=== PATIENT | male | born 1950 | race Caucasian/White ===

== ENCOUNTER 2025-02-15 22:01 | Outpatient (REF) | payer MEDICARE, SELFPAY ==
[2025-02-15 15:24] LABS: ALT 34 U/L (16-63); AST 31 U/L (15-37); Albumin 4.3 g/dL (3.4-5.0); Alkaline Phosphatase 81 U/L (46-116); Anion Gap 9.2 mmol/L (3-11); BUN 20 mg/dL (7-18); Bilirubin, Total 1.0 mg/dL (0.2-1.0); CO2 27.8 mmol/L (21.0-32.0); Calcium 9.3 mg/dL (8.5-10.1); Chloride 101 mmol/L (98-107); Estimated GFR 79.97 (mL/min/1.73m2); Glucose 108 mg/dL (74-106); NT-proBNP 473 pg/mL (<300); Potassium 4.8 mmol/L (3.5-5.1); Sodium 138 mmol/L (136-145); Total Protein 7.7 g/dL (6.4-8.2)
== END 2025-02-15 22:02 | disposition home or self-care (01) ==
LOC: NCHCN 22:01
PROVIDERS: Visit Provider Family Medicine
DX: R60.0 Localized edema (principal)
CPT/HCPCS: 80053; 83880

== ENCOUNTER 2025-03-14 03:10 | Outpatient (CLI) | payer MEDICARE, SELFPAY ==
--- NOTE | 2025-03-14 07:30 | DI.US_ITS ---
APPROVED REPORT EXAM: Comprehensive 2D, Doppler, and color-flow Echocardiogram Patient Location: Out-Patient [place] Operator: Maxx Russo RDCS (AE) Indications: Bilateral lower extremity edema Other Information Study Quality: Adequate Conclusion Normal left ventricular wall thickness and chamber size. Ejection fraction is 65%. Wall motion is normal Normal right ventricular size and function Both atria are normal in size There is no structural or hemodynamically significant valvular disease Ascending aorta measures 3.94 cm Wall motion Left Ventricle The left ventricle is normal size. The left ventricular systolic function is normal. The left ventricular ejection fraction is within the normal range. There is normal left ventricular wall thickness. There is normal LV segmental wall motion. The left ventricular diastolic function is normal. There is no ventricular septal defect visualized. LVEF is 65%. Right Ventricle The right ventricle is normal size. The right ventricular systolic function is normal. Atria The left atrium size is normal. The right atrium size is normal. Aortic Valve The aortic valve is normal in structure. Aortic valve is trileaflet. There is no aortic valvular stenosis. No aortic regurgitation is present. Mitral Valve The mitral valve is normal in structure. No evidence of mitral valve stenosis. Trace to mild mitral regurgitation. Tricuspid Valve The tricuspid valve is normal in structure. There is no tricuspid valve stenosis. There is trace tricuspid valve regurgitation noted. Pulmonic Valve The pulmonary valve is normal in structure. There is no pulmonic valvular stenosis. There is trivial pulmonic valvular regurgitation. Great Vessels The aortic root is normal in size. The ascending aorta is mild to moderately dilated. Aortic arch is normal in caliber. IVC is normal in size and collapses >50% with inspiration. Pericardium There is no pericardial effusion. 2D Dimensions IVSD d PLAX 1.00 cm M: 0.6-1.2 Ao Root d 3.04 cm M: 3.1 - 3.7 LVPW d PLAX 1.00 cm M: 0.6 - 1.2 Ao Asc Diam d 3.94 cm M: 2.6 - 3.4 LVID d PLAX 4.79 cm M: 4.2 - 5.8 LVDs 3.25 cm M: 2.5 - 4.0 LV EF Teichholz 60.4 % FS 32.29 % LV EDV (Teich) 107.1 mL LV ESV (Teich) 42.4 mL Stroke Vol Index (Teich) 30.40 M-Mode TAPSE 2.44 cm (M/F) >1.7 Auto EF LV EDV A4C 111.2 mL LV EDV A2C 139.3 mL LV EDV BP 127.6 mL LV ESV A4C 45.0 mL LV ESV A2C 48.4 mL LV ESV BP 46.4 mL LVEF(%) A4C 59.6 % LVEF(%) A2C 65.3 % LVEF(%) BP 63.7 % LV SV A4C 66.2 ml LV SV A2C 90.9 ml LV SV BP 81.2 ml LV CO A4C 5.9 L/min LV CO A2C 6.5 L/min LV CO BP 6.2 L/min HR A4C 89.33 BPM HR A2C 71.98 BPM LV EDV Index (BP) LA Volume LA Length A4C 4.7 cm LA Length A2C 5.5 cm LA Area A4C s 14.68 cm2 LA Area A2C s 18.60 cm2 LA Vol A4C A-L 39.14 mL LA Vol A2C A-L 53.42 mL LA Vol Biplane A-L 49.6 mL LA Vol/BSA A4C A-L LA Vol/BSA A2C A-L LA Vol/BSA BP A-L 23.3 mL/m2 LA Vol A4C MOD 36.6 mL LA Vol A2C MOD 49.6 mL LA Vol BP MOD 46.1 mL RA Volume RA Area A4C 13.2 cm2 RA ESV A4C (A-L) 33.8mL RA Vol/BSA A4C A-L RA Length A4C 4.4 cm RA ESV A4C (MOD) 31.5mL LV Diastology MV E' medial 0.129 (>0.07 m/s) MV E Vmax 0.77 (0.4-1.3 m/s) MV E/E' MED 5.91 (<14) MV E' lateral 0.123 (>0.1 m/s) MV E/E' LAT 6.21 (<14) MV E' Average 0.126 m/s MV E/E'(average) 6.06 Aortic Valve AoV Vmax 1.06 m/s LVOT Vmax 0.86 m/s AoV Peak Grad 4.5 mmHg LVOT Peak Grad 2.9 mmHg AoV Area (Vmax) 2.67 cm2 LVOT VTI 0.153 m AoV VTI 0.210 m LVOT Mean Grad 1.8 mmHg AoV Mean Devin. 0.68 m/s LVOT SV 50.68 mL AoV Mean Grad 2.1 mmHg LVOT Diam s 2.05 cm AoV Area (VTI) 2.41 cm2 AV Regurg Peak Gr. 4.51 mmHg Velocity Ratio 0.81 Mitral Valve MV DT 238 (160-240 msec) Pulmonary Valve PV Vmax 0.93 (0.5-1.5 m/s) RVOT Vmax 0.60 m/s PV Peak Grad 3.5 mmHg RVOT Peak Gr. 1.5 mmHg PV Mean Devin 0.62 m/s RVOT VTI 0.131 m PV Mean Grad 1.8 mmHg RVOT Mean Gr. 0.9 mmHg Tricuspid Valve TV S' 0.18 m/s TR Vmax 2.20 m/s
== END 2025-03-14 03:30 ==
PROVIDERS: PCP Family Medicine; Visit Provider Internal Medicine Cardiovascular Disease
DX: R60.0 Localized edema (principal)
CPT/HCPCS: 93306

== ENCOUNTER 2025-07-26 12:10 | Outpatient (REF) | payer MEDICARE, SELFPAY ==
[2025-07-26 20:50] LABS: HCT 45.8 % (40.0-50.0); HGB 15.4 g/dL (13.5-17.5); MCH 33.6 pg (27.0-33.0); MCHC 33.6 % (32.0-36.0); MCV 100 fL (80-95); MPV 10.8 fL (8.0-11.0); Platelet Count 203 10^3/uL (130-400); RBC 4.58 10^6/uL (4.36-5.78); RDW 13.2 % (11.8-14.1); RDW-SD 48.7 fL; WBC 7.26 10^3/uL (4.4-10.8)
[2025-07-26 21:02] LABS: Anion Gap 9 mmol/L (3-11); BUN 17 mg/dL (9-23); CO2 27.0 mmol/L (20.0-31.0); Calcium 9.0 mg/dL (8.3-10.6); Chloride 102 mmol/L (98-107); Glucose 90 mg/dL (74-106); Potassium 4.1 mmol/L (3.5-5.1); Sodium 138 mmol/L (136-145)
[2025-07-26 21:05] LABS: TSH 1.48 uIU/mL (0.55-4.78)
== END 2025-07-26 12:11 | disposition home or self-care (01) ==
LOC: NCHCN 12:10
PROVIDERS: PCP Family Medicine; Visit Provider Nurse Practitioner Family
DX: I48.91 Unspecified atrial fibrillation (principal)
CPT/HCPCS: 80048; 85027; 84443